=== PATIENT | female | born 1980 | race African-American/Black ===

== ENCOUNTER 2018-04-18 18:36 | Emergency (ER) | payer OTHER ==
[~2018-04-18] VITALS: Ht 172.7 cm; Wt 82.0 kg
[2018-04-19 01:32] VITALS: BP 137/89
== END 2018-04-19 01:35 | disposition home or self-care (01) ==
LOC: ER 18:36
DX: S04.51XA Injury of facial nerve, right side, initial encounter (principal); Y83.8 Other surgical procedures as the cause of abnormal reaction of the patient, or of later complication, without mention of misadventure at the time of the procedure; Y93.89 Activity, other specified; Y92.018 Other place in single-family (private) house as the place of occurrence of the external cause
CPT/HCPCS: 99283

== ENCOUNTER 2020-12-08 07:17 | Emergency (ER) | payer MEDICAID, OTHER ==
[~2020-12-08] VITALS: Ht 172.7 cm; Wt 75.0 kg
[2020-12-08 08:15] VITALS: BP 140/83
[2020-12-08 08:35] LABS: BASOPHILS % 0.4 % (0.0-2.0); HEMATOCRIT. 40.1 % (36.0-48.0); HEMOGLOBIN. 13.1 g/dL (12.0-16.0); LYMPHOCYTES % 15.5 % (20.0-50.0); MEAN CORPUSCULAR HEMOGLOBIN 28.2 pg (28.0-32.0); MEAN CORPUSCULAR VOLUME 86.4 fL (81.0-99.0); MEAN PLATELET VOLUME 9.4 fl (7.4-10.4); MONOCYTES % 10.4 % (2.0-8.0); NEUTROPHILS % 71.7 % (40.0-76.0); PLATELET 224 x1000/uL (130-400); RED BLOOD CELL COUNT 4.64 mill/uL (4.2-5.4); RED CELL DISTRIBUTION WIDTH 14.8 % (11.6-14.6)
[2020-12-08 08:41] LABS: CHLORIDE 108 mEq/L (98-107)
[2020-12-08 09:09] LABS: HCG SCREEN NEGATIVE
[2020-12-08] MEDS: ALBUTEROL (0.083%) 2.5MG/3ML NEB HHN STA (10:09)
== END 2020-12-08 11:47 | disposition left against medical advice (07) ==
LOC: ER 07:17
DX: R07.89 Other chest pain (principal); Z20.822 Contact with and (suspected) exposure to COVID-19; Z53.29 Procedure and treatment not carried out because of patient's decision for other reasons
CPT/HCPCS: 36415; 71045; 80053; 81025; 83880; 84484; 84703; 85025; 85379; 93005; 94640; 99285; C9803; U0003; U0005; Z7610